=== PATIENT | male | born 1990 | race Caucasian/White ===

== ENCOUNTER 2017-08-10 14:31 | Emergency (ER) | payer OTHER ==
[~2017-08-10] VITALS: Ht 165.1 cm; Wt 52.6 kg
--- NOTE | ~2017-08-10 | EKG ---
[address] [address] ELECTROCARDIOGRAM REPORT Name: BLANQUITA VERDIN Room #: [facility]#: [id number] Admission: 08/10/17 Attend Phys: Discharge: 08/10/17 Date of : [birth year] Report #: [id number] THIS REPORT FOR: //name// [facility] ED Test Date: 2017-08-10 Test Time: 14:49:59 Pat Name: BLANQUITA SMITHALICIADIVINE Department: Room: Gender: M Associate Publisher: KKBHAVNA : 1990 Requested By: Octavia Iyer Order Number: [id number] MD: Charly Branch Measurements Intervals [place] Rate: 60 P: 22 IN: 117 QRS: 30 QRSD: 73 T: 39 QT: 359 QTc: 359 Interpretive Statements Sinus rhythm Borderline short IN interval ST elev, probable normal early repol pattern No previous ECG available for comparison Electronically Signed On 08-11-2017 7:50:21 CDT by Charly Branch [email or web address] <ELECTRONICALLY SIGNED> By: Charly Branch MD 08/11/17 0750 1449 [id number] Charly Branch MD /BETHANY
[~2017-08-10 14:31] MED LIST: IBUPROFEN 200200 M1 PO; IBUPROFEN 600600 M1 PO; NOHOMEMEDICATIONS; NORFLEX100 MG PO; PROMETHAZINE-C120 ML PO; TRAMADOL 50 MG50 MG PO; ZANTAC 150MG T150 M1 PO; ZOFRAN ODT4 MG PO; ZOFRAN4 MG PO; ZPAK PO
[2017-08-10] MEDS ORDERED: CORTIZONE-10 PL28 GM TOP (15:12)
[2017-08-10 15:20] VITALS: BP 119/72
== END 2017-08-10 15:20 | disposition home or self-care (01) ==
LOC: ER 14:31
DX: L42 Pityriasis rosea (principal); R07.9 Chest pain, unspecified; J45.909 Unspecified asthma, uncomplicated; F17.210 Nicotine dependence, cigarettes, uncomplicated